=== PATIENT | female | born 1965 | race Caucasian/White ===

== ENCOUNTER 2016-02-16 12:04 | Emergency (ER) | payer MEDICAID ==
[~2016-02-16] VITALS: Ht 172.7 cm; Wt 49.9 kg
[2016-02-16] MEDS ORDERED: ONDANSETRON HCL/PF 4 MG/2 ML VIAL IVP ONE (13:00)
[2016-02-16] MEDS ORDERED: OXYMETAZOLINE HCL NASAL SPRAY 30 ML BOTTLE NS ONE ×2 (13:00→13:14)
[2016-02-16] MEDS ORDERED: IV NS 0.9% 1,000 ML BAG IV ONE (13:00)
[2016-02-16] MEDS ORDERED: ONDANSETRON HCL/PF 4 MG/2 ML VIAL ONE (13:10)
[2016-02-16] MEDS ORDERED: IV NS 0.9% 1,000 ML ONE (13:10)
[2016-02-16] MEDS ORDERED: IV SET PRIMARY 1 EA INFUS.SET MC ONE (13:10)
[2016-02-16] MEDS ORDERED: KETOROLAC TROMETHAMINE INJ 30 MG/ML VIAL ONE (13:50)
[2016-02-16] MEDS ORDERED: KETOROLAC TROMETHAMINE INJ 30 MG/ML VIAL IV ONE (14:00)
[2016-02-16 14:48] VITALS: BP 118/70
== END 2016-02-16 14:50 | disposition home or self-care (01) ==
LOC: ER 12:08
DX: B34.9 Viral infection, unspecified (principal); G43.909 Migraine, unspecified, not intractable, without status migrainosus; Z90.13 Acquired absence of bilateral breasts and nipples; C50.911 Malignant neoplasm of unspecified site of right female breast; C50.912 Malignant neoplasm of unspecified site of left female breast
CPT/HCPCS: 96361; 96374; 96375; 99284; A4606; J1885; J2405; J7030; Z7610

== ENCOUNTER 2019-10-21 19:46 | Emergency (ER) | payer MEDICAID ==
[~2019-10-21] VITALS: Ht 172.7 cm; Wt 56.7 kg
[2019-10-21 19:49] VITALS: BP 139/79
--- NOTE | 2019-10-21 20:32 | NUR ---
AGUSTO MYERS AT BEDSIDE FOR EVAL.
[2019-10-21] MEDS ORDERED: TDAP [DIPH/PERTUSSIS/TET] 0.5 ML VIAL IM ONE (20:47)
[2019-10-21] MEDS: TDAP [DIPH/PERTUSSIS/TET] 0.5 ML VIAL IM ONE (20:52)
--- NOTE | 2019-10-21 22:04 | NUR ---
Patient discharged to home in stable condition. Written and verbal after care instructions given. Patient verbalizes understanding of instruction.
== END 2019-10-21 22:05 | disposition home or self-care (01) ==
LOC: ER 19:46
DX: S80.11XA Contusion of right lower leg, initial encounter (principal); G43.909 Migraine, unspecified, not intractable, without status migrainosus; Z23 Encounter for immunization; Z98.82 Breast implant status; W54.0XXA Bitten by dog, initial encounter; Y93.89 Activity, other specified; Y92.89 Other specified places as the place of occurrence of the external cause; Y99.8 Other external cause status
CPT/HCPCS: 73590-TC; 90715